=== PATIENT | male | born 1990 | race Caucasian/White ===

== ENCOUNTER 2020-12-24 14:43 | Emergency (ER) | payer SELFPAY ==
[~2020-12-24] VITALS: Ht 185.4 cm; Wt 81.2 kg
--- NOTE | 2020-12-24 14:54 | NUR ---
MARIS FROM COVID VACCINE SITE TO ER BED 12. AAOX4. NOT IN RESP DISTRESS, BRAETHING EVEN AND UNLABORED. BROUGHT IN FOR A SYNCOPAL EPISODE. PER PT HE RECEIVED THE 1ST DOSE OF THE [place] COVID VACCINE. 30 SEC LATER PT FELT HE IS ABOUT TO PASSOUT AND NEXT THING HE KNW THERE ARE 4 PEOPLE AROUND HIM . NO TRAUMA NOR FALL OCCURED. NO REPORT LOW BP PER EMS. PT IS RECEIVING NS UPON ARRIVAL. WAST AT THE BEDSIDE FOR EVAL. ORDERS RECEIVED AND NOTED. MD ORDERED TO CONTINUE THE IV FLUIDS THAT WAS RUNNING. PT ON MONITOR
[2020-12-24] MEDS ORDERED: IV NS 0.9% 1,000 ML BAG IV ONE (15:00)
[2020-12-24 15:32] VITALS: BP 128/79
--- NOTE | 2020-12-24 15:33 | NUR ---
Patient discharged to home in stable condition. Written and verbal after care instructions given. Patient verbalizes understanding of instruction.IV removed. Catheter intact and site benign. Pressure and 4x4 applied to site. No bleeding noted. Pt ambulatory with a steady gait
== END 2020-12-24 15:33 | disposition home or self-care (01) ==
LOC: ER 14:57
DX: R55 Syncope and collapse (principal)
CPT/HCPCS: J7030